=== PATIENT | female | born 1985 | race Two or more races ===

== ENCOUNTER 2018-11-23 21:41 | Inpatient (IN) | payer OTHER ==
[~2018-11-23] VITALS: Ht 170.2 cm; Wt 84.5 kg
[2018-11-23 21:40] VITALS: BP 115/68
[2018-11-23 22:33] LABS: MICROSCOPIC INDICATED
[2018-11-24] MEDS ORDERED: NEWBORN KIT ONE ×2 (00:11→00:50)
[2018-11-24] MEDS ORDERED: OXYTOCIN 30U/ 0.9% NaCL 500ML 500 ML ONE ×2 (00:12→17:36)
[2018-11-24] MEDS ORDERED: LIDOCAINE 1%, 20ML ONE (00:12)
[2018-11-24] MEDS ORDERED: MISOPROSTOL 200 MCG TABLET ONE (00:12)
[2018-11-24] MEDS ORDERED: FENTANYL/BUPIV./NS/PF 250 ML EPIDCONT SCH ×3 (00:17→06:26)
[2018-11-24] MEDS ORDERED: LACTATED RINGERS 1,000 ML IV SCH ×2 (00:17→06:26)
[2018-11-24] MEDS ORDERED: OXYTOCIN 30U/ 0.9% NaCL 500ML 500 ML IV ONE (00:17)
[2018-11-24] MEDS: LACTATED RINGERS 1,000 ML IV SCH ×2 (00:17→06:59)
[2018-11-24] MEDS ORDERED: D5%-LACTATED RINGERS 1,000 ML IV SCH (00:17)
[2018-11-24] MEDS ORDERED: FENTANYL PF 100 MCG/2ML IVPush PRN (00:30)
[2018-11-24] MEDS ORDERED: EPHEDRINE 50 MG/ML, 1ML IVPush PRN ×2 (00:30→06:30)
[2018-11-24] MEDS ORDERED: CALCIUM CARBONATE 500 MG TAB.CHEW PO PRN (00:30)
[2018-11-24] MEDS ORDERED: LACTATED RINGERS 1,000 ML IVBOLUS PRN ×3 (00:30→06:30)
[2018-11-24] MEDS ORDERED: FENTANYL PF 100 MCG/2ML IV PRN (00:30)
[2018-11-24] MEDS ORDERED: ONDANSETRON 2MG/ML, 2ML IVPush PRN (00:30)
[2018-11-24 00:55] LABS: BASOPHILS # (AUTO) 0.03 x10^3/uL (0-0.1); BASOPHILS % (AUTO) 0 % (0-1); EOSINOPHILS # (AUTO) 0.14 x10^3/uL (0-0.4); EOSINOPHILS % (AUTO) 2 % (1-7); LYMPHOCYTES % (AUTO) 26 % (22-44); MD NO; MEAN CORPUSCULAR HEMOGLOBIN 26.7 pg (27.0-34.8); MEAN PLATELET VOLUME 7.5 fL (7.4-10.4); MONOCYTES # (AUTO) 0.61 x10^3/uL (0.2-0.8); MONOCYTES % (AUTO) 7 % (2-9); NEUTROPHILS # (AUTO) 5.84 x10^3/uL (1.8-6.8); NEUTROPHILS % (AUTO) 66 % (42-75); PLATELET COUNT 253 x10^3/uL (130-400); RED BLOOD COUNT 4.29 x10^6/uL (3.82-5.3); RED CELL DISTRIBUTION WIDTH 14.5 % (9.6-15.2)
[2018-11-24 01:25] VITALS: BP 102/55
[2018-11-24] MEDS ORDERED: BUPIVACAINE 0.25% ONE (06:23)
[2018-11-24] MEDS ORDERED: NALOXONE 0.4 MG/ML, 1ML IVPush PRN (06:30)
[2018-11-24] MEDS ORDERED: OXYcodone/APAP 5/325MG TABLET PO PRN (15:00)
[2018-11-24] MEDS ORDERED: MISOPROSTOL 200 MCG TABLET PR PRN (15:00)
[2018-11-24] MEDS ORDERED: ONDANSETRON 2MG/ML, 2ML IV PRN (15:00)
[2018-11-24] MEDS ORDERED: METHYLERGONOVINE 0.2 MG/ML IM PRN (15:00)
[2018-11-24] MEDS ORDERED: DOCUSATE 100 MG CAPSULE PO PRN (15:00)
[2018-11-24] MEDS ORDERED: CARBOPROST TROMETHAMINE 250 MCG/ML, 1ML IM PRN (15:00)
[2018-11-24] MEDS: OXYTOCIN 30U/ 0.9% NaCL 500ML 500 ML IV SCH (17:38)
[2018-11-24 18:18] VITALS: BP 107/68
[2018-11-24 19:45] VITALS: BP 112/70
[2018-11-24] MEDS: IBUPROFEN 800 MG TABLET PO PRN (19:55)
[2018-11-24 22:50] LABS: BASOPHILS # (AUTO) 0.02 x10^3/uL (0-0.1); BASOPHILS % (AUTO) 0 % (0-1); EOSINOPHILS # (AUTO) 0.11 x10^3/uL (0-0.4); EOSINOPHILS % (AUTO) 1 % (1-7); LYMPHOCYTES # (AUTO) 1.94 x10^3/uL (1-3.4); LYMPHOCYTES % (AUTO) 18 % (22-44); MD NO; MEAN CORPUSCULAR HEMOGLOBIN 26.9 pg (27.0-34.8); MEAN CORPUSCULAR HGB CONC 32.7 g/dL (32.4-35.8); MEAN CORPUSCULAR VOLUME 82.4 fL (80-100); MEAN PLATELET VOLUME 7.5 fL (7.4-10.4); MONOCYTES # (AUTO) 0.63 x10^3/uL (0.2-0.8); MONOCYTES % (AUTO) 6 % (2-9); NEUTROPHILS # (AUTO) 8.35 x10^3/uL (1.8-6.8); NEUTROPHILS % (AUTO) 76 % (42-75); PLATELET COUNT 221 x10^3/uL (130-400); RED BLOOD COUNT 4.05 x10^6/uL (3.82-5.3); RED CELL DISTRIBUTION WIDTH 14.7 % (9.6-15.2)
[2018-11-24 23:45] VITALS: BP 102/65
[2018-11-25] MEDS: OXYcodone/APAP 5/325MG TABLET PO PRN ×2 (00:02→04:26)
[2018-11-25] MEDS: OXYTOCIN 30U/ 0.9% NaCL 500ML 500 ML IV SCH ×2 (00:46→10:46)
[2018-11-25 04:00] VITALS: BP 99/60
[2018-11-25] MEDS: IBUPROFEN 800 MG TABLET PO PRN ×2 (04:25→12:23)
[2018-11-25 07:15] VITALS: BP 108/76
[2018-11-25] MEDS ORDERED: PRENATAL VIT/IRON/FA 1 EACH TABLET PO SCH (09:00)
[2018-11-25] MEDS ORDERED: RHOGAM FROM BLOOD BANK 1 NOTE EA IM/IV ONE (10:00)
[2018-11-25 12:46] VITALS: BP 129/73
[2018-11-25] MEDS ORDERED: IBUP-1222 PO (15:11)
[2018-11-25] MEDS ORDERED: OXYC-302 PO (15:11)
== END 2018-11-25 16:10 | disposition home or self-care (01) | DRG 807 ==
LOC: LDOP 21:41 → LDIP 11-24 00:36 → 2NW 11-24 18:03
PROVIDERS: ADMIT Obstetrics & Gynecology; ATTEND Obstetrics & Gynecology
PROC: 10E0XZZ Delivery of Products of Conception, External Approach (ICD-10-PCS; principal; 2018-11-24)
PROC: 0KQM0ZZ Repair Perineum Muscle, Open Approach (ICD-10-PCS; 2018-11-24)
PROC: 3E0234Z Introduction of Serum, Toxoid and Vaccine into Muscle, Percutaneous Approach (ICD-10-PCS; 2018-11-24)
PROC: 3E0R3BZ Introduction of Anesthetic Agent into Spinal Canal, Percutaneous Approach (ICD-10-PCS; 2018-11-24)
PROC: 00HU33Z Insertion of Infusion Device into Spinal Canal, Percutaneous Approach (ICD-10-PCS; 2018-11-24)
DX: O69.81X0 Labor and delivery complicated by cord around neck, without compression, not applicable or unspecified (principal); Z37.0 Single live birth; O70.1 Second degree perineal laceration during delivery; Z3A.39 39 weeks gestation of pregnancy; O34.13 Maternal care for benign tumor of corpus uteri, third trimester; D25.9 Leiomyoma of uterus, unspecified; O26.893 Other specified pregnancy related conditions, third trimester
CPT/HCPCS: 36415; J2790; 81001; 85025; 85461; 86850; 86900; G0378; J2590; J3010; J7120